=== PATIENT | male | born 2000 | race African-American/Black ===

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

== ENCOUNTER 2024-01-04 08:00 | Outpatient (CLI) | payer SELFPAY ==
--- NOTE | 2024-01-04 16:29 | XRAY Report ---
PROCEDURE: Thoracic Spine 2V INDICATIONS: STRAIN OF MUSCLE AND TENDON OF BACK WALL OF THORAX TECHNIQUE: 2 views of the thoracic spine were acquired. COMPARISON: None. FINDINGS: Bones: No fractures or dislocations. No suspicious bony lesions. 12 pairs of ribs are noted, and a ppear intact where visualized. Soft tissues: No paravertebral stripe thickening. IMPRESSION: No acute bony abnormality. No significant degenerative change. Reviewed by: Travis Collins MD on 01/04/2024 4:28 PM PST Approved by: Travis Collins MD on 01/04/2024 4:28 PM PST Station ID: [id number]
--- NOTE | 2024-01-04 16:30 | XRAY Report ---
PROCEDURE: Cervical Spine 2-3V INDICATIONS: STRAIN OF MUSCLES, FASCIA, AND TENDON AT NECK LEVEL TECHNIQUE: 3 view(s) of the cervical spine were acquired. COMPARISON: 01/01/2018. FINDINGS: Bones: No fractures or dislocations to the T1 level. The lateral masses of C1 appear intact on the odontoid view. No suspicious bony lesions. Soft tissues: No prevertebral soft tissue swelling. IMPRESSION: No displaced fracture or traumatic subluxation. Reviewed by: Travis Collins MD on 01/04/2024 4:29 PM PST Approved by: Travis Collins MD on 01/04/2024 4:29 PM PST Station ID: [id number]
== END 2024-01-04 23:59 | disposition home or self-care (01) ==
LOC: DI.N 08:00
PROVIDERS: ATTEND Family Medicine
DX: S16.1XXA Strain of muscle, fascia and tendon at neck level, initial encounter (principal); S29.012A Strain of muscle and tendon of back wall of thorax, initial encounter

== ENCOUNTER 2024-02-13 17:04 | Outpatient (CLI) | payer OTHER, MEDICAID ==
[2024-02-13] MEDS ORDERED: GADOTERATE MEGLUMINE 5 MMOL/10 ML VIAL ONE (17:09)
[2024-02-13] MEDS ORDERED: GADOTERATE MEGLUMINE 7.5 MMOL/15 ML VIAL ONE (17:10)
[2024-02-13] MEDS: GADOTERATE MEGLUMINE 7.5 MMOL/15 ML VIAL IVP ONE (17:26)
[2024-02-13] MEDS: GADOTERATE MEGLUMINE 5 MMOL/10 ML VIAL IVP ONE (17:28)
--- NOTE | 2024-02-14 07:28 | MRI Report ---
PROCEDURE: Brain W/WO INDICATIONS: CONCUSSION CONTRAST: clariscan 22.2ml TECHNIQUE: Noncontrast axial T1 spin echo, axial T2 fast spin echo, sagittal and axial FLAIR, coronal T2 fast sp in echo, axial gradient echo, axial diffusion and ADC through the brain. After the administration of contrast, axial and coronal T1 spin echo with fat saturation through the brain. COMPARISON: None. FINDINGS: Image quality: Excellent. CSF spaces: Basal cisterns are patent. No extra-axial fluid collections. Ventricles are normal in size and shape. Brain: No midline shift. No intracranial bleeds or masses. No abnormal intracranial enhancement. There is cerebral volume loss for age. There is periventricular white matter chronic small vessel is chemic change. The brainstem appears normal. Diffusion-weighted images demonstrate no acute ischemi c insults. No chronic ischemic insults. No hemosiderin deposition identified. Normal intravascular f low voids are present. Skull and face: Calvarial marrow is normal in signal. Orbits appear normal. Sinuses: Mild dependent bilateral maxillary sinus mucosal thickening and small right maxillary sinus mucus retention cyst. No air-fluid levels. Mastoids are clear. IMPRESSION: 1. Unremarkable brain MRI with and without contrast. No acute process. No evidence of sequelae of int racranial trauma. 2. Mild chronic sinus disease. Reviewed by: Vijay Mayfield MD on 02/14/2024 7:27 AM PDT Approved by: Vijay Mayfield MD on 02/14/2024 7:27 AM PDT Station ID: [id number]
== END 2024-02-13 17:05 | disposition home or self-care (01) ==
LOC: DI 17:04
PROVIDERS: ATTEND Family Medicine
DX: S06.0X0A Concussion without loss of consciousness, initial encounter (principal); J32.9 Chronic sinusitis, unspecified
CPT/HCPCS: 70553; A9575